=== PATIENT | female | born 2000 | race Caucasian/White ===

== ENCOUNTER 2018-02-10 20:37 | Emergency (ER) | payer OTHER, SELFPAY ==
[2018-02-10 20:42] VITALS: BP 136/87; PULSE 72; RESP 18; TEMP 36.9; O2SAT 100
--- NOTE | 2018-02-10 22:02 | PC.NURSE ---
In bilateral ears pts earring backs are within earlobe. Pt unable to remove them herself. Pt unsure of how long they have been imbedded in her earlobe.
--- NOTE | 2018-02-10 22:12 | ED.GENADULT ---
HPI - General Adult General Chief complaint: Skin/Abscess/Foreign Body Stated complaint: EARINGS GOT STUCK STARING TO GET INFECTED Time Seen by Provider: 02/10/18 21:36 Source: patient Mode of arrival: ambulatory Limitations: no limitations History of Present Illness HPI narrative: Year old otherwise healthy female here for evaluation of both of her here rings being stuck in her ears and concerns for an infection. She states she has had these earrings in her ears for an extended period of time. She states that the skin has grown over the back of the earring and she could no longer get them out. Related Data Allergies Allergy/AdvReac Type Severity Reaction Status Date / Time No Known Drug Allergies Allergy Verified 02/10/18 20:41 Review of Systems Constitutional Denies fatigue and Denies headache(s) ENT Ears, Nose, Mouth, and Throat: Denies headache(s) Comments: Earring stuck in both of her ears Integumentary/Breasts Comments: Swelling and redness of bilateral ear lobes Neurologic Denies headache(s) Endocrine Denies fatigue PFSH Medical History Healthy adult (Acute) Surgical History No pertinent past surgical history (Acute) Social History Smoking Status: Never smoker Exam Initial Vital Signs Initial Vital Signs: Vital Signs Temperature 98.4 F 02/10/18 20:42 Pulse Rate 72 02/10/18 20:42 Respiratory Rate 18 02/10/18 20:42 Blood Pressure 136/87 02/10/18 20:42 Pulse Oximetry 100 02/10/18 20:42 Const General: cooperative, healthy appearing, comfortable, well developed, well groomed and No acute distress Orientation: alert, awake and oriented x3 HENMT Ears: other (Patient with pierced ears bilateral ear lobes. Skin has grown over the backing of both of the earrings.) Resp Effort & Inspection: normal respiratory effort Skin Other: Patient with swelling of bilateral ear lobes with only minimal redness. Left appears to be worse than right. Neuro General: alert, awake and oriented x3 Extrem General: normal to inspection and capillary refill normal Psych Appearance: grossly normal and well kempt Course Vital Signs - 8 hr 02/10/18 20:42 02/10/18 22:18 Temperature 98.4 F Pulse Rate 72 84 Respiratory Rate 18 16 Blood Pressure 136/87 Blood Pressure [Left Arm] 128/87 Pulse Oximetry 100 100 Medical Decision Making MDM Narrative Medical decision making narrative: With the help of a hemostat was able to remove the backing is a both the earrings in were able to remove the earrings. Removal the earrings did cause some bleeding. There is only minimal redness around the areas. No purulent drainage. Informed the patient that if she had another pair of earrings that putting a new pair in and not making them tight would help with any drainage of possible infection. She expressed understanding. Will hold on antibiotics secondary to the look of the ears tonight. I suspect that the redness is because the earrings had been in for such an extended period time. She was given return precautions. Both her and her mother expressed understanding and agreement with plan Discharge Plan Departure Patient Disposition: Home Clinical Impression: Embedded earring Discharge Date/Time: 02/10/18 22:19 Interventions: ED Discharge Assessment Last Done: 02/10/18 22:19 Activity Restrictions/Additional Instructions: Keep the ear lobes clean. You can shower like normal. Return to the emergency department for any new or worsening symptoms
[2018-02-10 22:18] VITALS: BP 128/87; PULSE 84; RESP 16; O2SAT 100
== END 2018-02-10 22:19 | disposition home or self-care (01) ==
PROVIDERS: Emergency Provider Emergency Medicine
DX: S00.451A Superficial foreign body of right ear, initial encounter (principal); S00.452A Superficial foreign body of left ear, initial encounter
CPT/HCPCS: 99282

== ENCOUNTER → 2018-02-28 14:00 | Outpatient (CLI) | payer OTHER, SELFPAY | DX: Z23 Encounter for immunization (principal) | CPT/HCPCS: 90471; 90686 ==

== ENCOUNTER → 2019-06-15 17:06 | Outpatient (CLI) | payer SELFPAY | PROVIDERS: Visit Provider Physician Assistant | DX: N30.01 Acute cystitis with hematuria (principal) | CPT/HCPCS: 87077; 87086; 87186 ==

== ENCOUNTER → 2021-01-31 09:40 | Outpatient (CLI) | payer OTHER, SELFPAY ==
[2021-01-31 12:09] LABS: Urine N gonorrhoeae NOT DETECTED
[2021-01-31 13:27] LABS: Urine Chlamydia NOT DETECTED
== END ==
PROVIDERS: Visit Provider Physician Assistant
DX: R30.0 Dysuria (principal); R35.0 Frequency of micturition
CPT/HCPCS: 87077; 87086; 87186; 87210; 87491; 87591

== ENCOUNTER → 2021-12-24 15:01 | Outpatient (CLI) | payer OTHER, MEDICAID, SELFPAY ==
--- NOTE | 2021-12-24 15:02 | DI.US.S_ITS ---
PROCEDURE: US OB >= 14 WEEKS FETUS INDICATIONS: LATE ANATOMY EVALUATION OUTSIDE/PRIOR DATING DATA: Last menstrual period (LMP): 05/13/2021 LMP-based estimated date of delivery (MONSERRAT): 02/17/2022. First dating scan (date and location): 12/24/2021. Estimated date of delivery (MONSERRAT) from first dating scan: 02/22/2022. The calculations are made using the ultrasound MONSERRAT of 02/22/2022. TECHNIQUE: Real-time scanning was performed of the fetus, with image documentation and biometric measurements. COMPARISON: None. FINDINGS: General: A single living intrauterine gestation is present. Presentation: Vertex. Placenta: Placental position is anterior , without previa. Amniotic fluid index: 9.8 cm cm, normal range is 5-24 cm. Single deepest vertical pocket is 4.1 cm. heart rate: 147 beats per minute. Maternal cervical canal: 3.8 cm long. Normal lower limit is 2.5 cm. biometrics: Biparietal diameter: 31 weeks 4 days Head circumference: 31 weeks 5 days Abdominal circumference: 30 weeks 5 days Femur length: 31 weeks 4 days Clinically estimated gestational age: 32 weeks 1 day Composite gestational age from present scan: 31 weeks 3 days Estimated weight and percentile: 17 17 g; 15 percentile Anatomic survey: Neuro: Ventricles are non-dilated at less than 10 mm. Cisterna magna is normal at 3-11 mm. Cerebellum is normal in size and morphology. Nuchal skin fold: Suboptimally visualized. Face: Suboptimally visualized. Spine: Suboptimally visualized. Heart: 4-chambered heart is present, with normal ventricular outflow tracts. Diaphragm: Diaphragm is intact. Stomach: Left-sided stomach is present. Kidneys: No hydronephrosis. Normal is less than 5 mm in 2nd trimester, less than 7 mm in 3rd trimester. Cord: 3-vessel cord has orthotopic insertion. Bladder: Normal in size. Extremities: All 4 extremities identified. IMPRESSION: 1. Single living IUP redemonstrated and interval growth is lower limits of normal with estimated weight 15 percentile. 2. face and spine suboptimally visualized; otherwise normal anatomy. Follow-up recommended. We strive to produce accurate, complete, and clear reports of imaging services. To assist us in improving patient care, this report was composed using standard report templates and voice recognition software. Therefore, it may contain abnormal punctuation, insertions and/or omissions. Occasional wrong-word or sound-alike substitutions may occur. Though we review the report and make efforts to correct it, we do recommend that the report be read carefully in proper context to recognize any text inaccuracies. Dictated by: Loyd SHELTON Interpreted: Tahmina Vickers MD on 12/24/2021 at 16:01 Transcribed by: YENY on 12/28/2021 at 15:32 Approved by: Tahmina Vickers M.D. on 12/28/2021 at 17:35
== END ==
PROVIDERS: Referring Provider Obstetrics & Gynecology; Visit Provider Obstetrics & Gynecology
DX: Z34.03 Encounter for supervision of normal first pregnancy, third trimester (principal); Z3A.31 31 weeks gestation of pregnancy
CPT/HCPCS: 76811

== ENCOUNTER → 2021-12-29 10:04 | Outpatient (CLI) | payer OTHER, MEDICAID, SELFPAY ==
[2021-12-29 14:15] LABS: GTT (PREG) 1 Hour PP 50gm Dose 112 mg/dL (76-139)
== END ==
PROVIDERS: Referring Provider Obstetrics & Gynecology; Visit Provider Obstetrics & Gynecology
DX: Z34.03 Encounter for supervision of normal first pregnancy, third trimester (principal)
CPT/HCPCS: 36415; 82950

== ENCOUNTER → 2022-01-13 14:51 | Outpatient (CLI) | payer OTHER, MEDICAID, SELFPAY | PROVIDERS: Visit Provider Obstetrics & Gynecology | DX: Z34.03 Encounter for supervision of normal first pregnancy, third trimester (principal) | CPT/HCPCS: 87086 ==

== ENCOUNTER → 2022-01-20 11:01 | Outpatient (CLI) | payer OTHER, MEDICAID, SELFPAY ==
[2022-01-21 12:05] LABS: Strep Grp B PCR NEG for Grp B Strep
== END ==
PROVIDERS: Visit Provider Obstetrics & Gynecology
DX: Z36.85 Encounter for antenatal screening for Streptococcus B (principal); Z3A.36 36 weeks gestation of pregnancy
CPT/HCPCS: 87653

== ENCOUNTER → 2022-01-21 11:13 | Outpatient (CLI) | payer OTHER, MEDICAID, SELFPAY ==
--- NOTE | 2022-01-21 11:14 | DI.US.S_ITS ---
PROCEDURE: US OB LIMITED INDICATIONS: growth. MONSERRAT is 02/17 set by 7 week US OUTSIDE/PRIOR DATING DATA: Last menstrual period (LMP): 05/13/2021. LMP-based estimated date of delivery (MONSERRAT): 02/17/2022. First dating scan (date and location): 12/24/2021. Estimated date of delivery (MONSERRAT) from first dating scan: 02/22/2022. TECHNIQUE: Real-time scanning was performed of the fetus, with image documentation and biometric measurements. Endovaginal scanning: None COMPARISON: None. FINDINGS: General: A single living intrauterine gestation is present. Presentation: Cephalic. Placenta: Placental position is anterior , without previa. Amniotic fluid index: 10.7 cm, normal range is 5-24 cm. Single deepest vertical pocket is 3.5 cm. heart rate: 158 beats per minute. Maternal cervical canal: Not visualized biometrics: Biparietal diameter: 8.3 cm, 33 week 3 day Head circumference: 30.6 cm, 34 week 0 day Abdominal circumference: 30.6 cm, 34 week 4 day Femur length: 6.8 cm, 35 week 0 day Clinically estimated gestational age: 36 week 1 day Composite gestational age from present scan: 34 week 2 day Estimated weight and percentile: 2448 g, 14th percentile Umbilical artery S/D ratio: 2.5, 2.3, 2.3 Other: Not applicable. IMPRESSION: Single live intrauterine corresponding with a 34 week 2 day gestation by current ultrasound Approved by: Jack Damon M.D. on 01/21/2022 at 13:28
== END ==
PROVIDERS: Referring Provider Obstetrics & Gynecology; Visit Provider Obstetrics & Gynecology
DX: O36.5990 Maternal care for other known or suspected poor fetal growth, unspecified trimester, not applicable or unspecified (principal); Z3A.34 34 weeks gestation of pregnancy
CPT/HCPCS: 76815; 76820

== ENCOUNTER 2022-02-01 02:04 | Inpatient (IN) | payer OTHER, MEDICAID, SELFPAY ==
[2022-02-01 03:56] LABS: Add Manual Diff / Slide Review NO; Basophils Absolute Auto 200 /uL (0-100); Basophils Percent Auto 1.3 % (0-2); Eosinophils Absolute Auto 100 /uL (0-450); Hematocrit 35.1 % (36-46); Lymphocytes Absolute Auto 2300 /uL (1100-4500); Lymphocytes Percent Auto 18.4 % (25-40); Mean Corpuscular HGB Conc 34.3 % (30-36); Mean Corpuscular Hemoglobin 31.2 PG (26-34); Monocytes Absolute Auto 900 /uL (0-900); Monocytes Percent Auto 7.2 % (3-14); Neutrophils Absolute Auto 9100 /uL (1500-7000); Neutrophils Percent Auto 72.1 % (50-75); Platelet Count 259 X10^3/uL (150-400); Red Blood Cell Count 3.85 X10^6/uL (4.0-5.2); Red Cell Distribution Width 13.9 % (11.6-14.8); White Blood Cell Count 12.7 X10^3/uL (4.5-11.0)
[2022-02-01 04:02] LABS: COVID19 -Nasal RAPID Negative (Negative)
[2022-02-01] MEDS: LACTATED RINGERS 1,000 ML 100 ML IV ×2 (07:33→11:27)
--- NOTE | 2022-02-01 07:58 | P.HPOB_ITS ---
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 She reports a gush of fluid at approximately 12:30 a.m. this morning. Presentation here she was elio approximately every 5 minutes. She continues with contractions approximately every 5 minutes, only feeling as crampy, not feeling anything pain for strong. No vaginal bleeding. Feeling good movement. has been uncomplicated. She received her care in [place] until transfer here at 32 weeks. Care in [place]: MONSERRAT is set by a 7 week US in [place]. She had a normal anatomy ultrasound. Screening random glucose in 3rd trimester was normal. Glucola here was normal. Ultrasound here at 32 weeks EFW 15%. percentile. Pt here working, still in [place]. Patient's mother with her today as support person during labor. History of Present care: good care Dating criteria: based on 1st trimester US only Ultrasounds: normal 1st trimester US and normal mid trimester US Abnormal ultrasound findings: 32 week ultrasound at [facility] showed EFW 15 percentile, placenta anterior, no previa Obstetrical complications: none Medical complications: none Preadmission Labs Blood type: O (+) positive -: Antibody screen: negative, GBS status: negative (01/20/22), HIV: unknown and RPR/VDLR: negative (November 14 2021 [place]) -: Chlamydia screen: not detected (01/11/21) and Gonorrhea screen: not detected (01/11/21) 1 hr GTT: 112 Evaluation Evaluation Baseline heart rate: 135 Variability: Moderate (11-25) monitor accelerations: Present Monitor Decelerations: Absent Contraction Frequency (minutes): 5 Uterine Contraction Intensity: Mild Category of Tracing: Reactive Status: Category l Dilation (cm): 0 Effacement (%): 0 Non-invasive Membranes Rupture Test: positive (by RN on admission) Comments: bedside US: vertex Cervical exam not re-checked. Cervix: ftp/long at 0230 [facility] Medical History Healthy adult Surgical History No pertinent past surgical history Social History marital status: number of children: 0 household members: spouse and family (parents) lives independently: Yes housing: house pets and animals: No education level: high school occupational status: unemployed current occupational exposures/hazards: No special guerita needs: No travel history: recent (7 months in [place]) seatbelt use: always water heater temp set < 120 deg: No (will have family adjust) working smoke detector in home: Yes fire extinguisher in home: Yes carbon monox detector in home: Yes firearms in home: Yes do you feel safe at home: Yes Smoking Status: Never smoker second hand exposure: No alcohol intake: former (social drinker when not ) substance use type: does not use during the past year weight has: remained stable well-balanced diet: daily or most days daily servings fruits/ve-4 caffeine: No Type(s) of exercise: walking frequency: 1-2 times per week duration: 15-30 minutes/day Meds Home Medications and Allergies Home Medications Medication Instructions Recorded Confirmed Type prenat.vits,lindsay,nol-urbm-hcjrx 1 tab PO DAILY 12/23/21 02/01/22 History Allergies Allergy/AdvReac Type Severity Reaction Status Date / Time No Known Drug Allergies Allergy Verified 02/01/22 05:03 OB Exam HENIA Head: normal to inspection, normocephalic and atraumatic Resp Effort & Inspection: normal respiratory effort and able to speak in complete sentences Cardio Rate: regular rate Extremities Lower extremity: Yes normal to inspection Objective Labs Result Diagrams: 02/01/22 03:15 Labs: Laboratory Results - last 24 hr 02/01/22 02/01/22 02/01/22 03:15 03:15 03:15 WBC 12.7 H RBC 3.85 L Hgb 12.0 Hct 35.1 L MCV 91.0 MCH 31.2 MCHC 34.3 RDW 13.9 Plt Count 259 Neut % (Auto) 72.1 Lymph % (Auto) 18.4 L [place] % (Auto) 7.2 Eos % (Auto) 1.0 L Baso % (Auto) 1.3 Neut # (Auto) 9100 H Lymph # (Auto) 2300 [place] # (Auto) 900 Eos # (Auto) 100 Baso # (Auto) 200 H SARS-CoV-2 (PCR) Negative Blood Type O Positive Antibody Screen Negative Afebrile BP normal Assessment and Plan Assessment and Plan Assessment and Plan narrative: 21-year-old G1 at 37wk5d with SROM, GBS negative. No labor yet approximately 8 hours after spontaneous rupture membranes. EFM category 1, vertex by ultrasound. Plan: I recommended adding Pitocin for augmentation labor, discussed. Patient agrees, desires augmenting labor at this time. Pitocin ordered. Time Spent with Patient Total time spent with greater than 50% in coordination of care (as documented) at patient's floor/unit and/or counseling patient:: less than 15 minutes
[2022-02-01] MEDS: OXYTOCIN PREMIX 30 UNIT/500 ML PLAST..BAG IV (08:10)
[2022-02-01] MEDS: fentaNYL 100 MCG/2 ML INJ 50 MCG IV (11:08)
--- NOTE | 2022-02-01 13:14 | PM.OBPNLAB ---
Date/Time Date Patient Seen: 02/01/22 Time Patient Seen: 13:00 Pain Control Pain control: tolerating well and narcotic analgesia Pelvic Exam Dilation (cm): 4.5 Effacement (%): 0 station: -1 Amniotic membrane status: Ruptured Contractions Contractions on admission: regular Pitocin rate (mU/min): 4 Contraction frequency (min): 2 Contraction pattern: Regular Contraction intensity: Moderate Status status: Category l Heart Rate Baseline: 150 Monitor Accelerations: Present Monitor Decelerations: Recurrent and Variable Monitor Variability: Moderate Assessment and Plan Assessment: active labor Comments: With position change, variable decelerations corrected to not recurrent, not with every contraction and decreased from moderate to mild. Of note to severe variable decelerations were when patient was bearing down in the bathroom, otherwise having [id number] variable decelerations, category 2 EFM. She appears to be progressing now in labor, 4-5 cm/ 90% effaced. Will continue Pitocin at current dose, with close observation of EFM and labor progress. With correction variable decelerations mild, initially stayed all ordered since fentanyl did not give her enough relief. However return of moderate variable decelerations, I discussed with the patient it would be better not to give stayed all, not to take away the FHR variability so we can follow that. Discussed nitrous with her or epidural. She declines both for now and will continue with attempted natural labor.
--- NOTE | 2022-02-01 14:54 | PM.OBPNLAB ---
Date/Time Date Patient Seen: 02/01/22 Time Patient Seen: 14:45 Pain Control Pain control: tolerating well Comments: Coping with contractions. Feeling rectal pressure and bearing down mildly. Encouraged her not to push yet Pelvic Exam Dilation (cm): 9 Effacement (%): 100 station: +1 Amniotic membrane status: Ruptured Contractions Contractions on admission: regular Pitocin rate (mU/min): 1 Contraction frequency (min): 2 Contraction pattern: Regular (q 2-3 minutes) Contraction intensity: Strong/Firm Status status: Category ll Heart Rate Baseline: 160 Monitor Accelerations: Present Monitor Decelerations: Episodic and Variable Monitor Variability: Moderate Assessment and Plan Assessment: active labor and other ( Pitocin augmentation ongoing. Pitocin decreased from 4 to 1 milliunits per minute, with category 2 EFM.) Comments: Variable decelerations less severe with decreased Pitocin and position change. She is having a frequently with 2/3 of contractions. She is 9.5 cm now and feeling rectal pressure, bearing down. Will recheck her in 10 15 minutes, And anticipate pushing soon.
[2022-02-01 15:19] LABS: Hepatitis B Surface Antigen NEGATIVE s/c (NEGATIVE); Rubella Antibody IgG 19.3 IU/mL (>15)
[2022-02-01 15:26] LABS: HIV 1 & 2 Ab/Ag 4th Gen Combo NEGATIVE (NEGATIVE)
[2022-02-01 15:36] LABS: Hep C Virus Ab w/Reflex Quant NEGATIVE s/c (NEGATIVE)
--- NOTE | 2022-02-01 17:34 | PM.OBPRVD ---
Labor & Delivery Delivery date: 02/01/22 Cervical ripening method: none Induction method: none Delivery augmentation: pitocin Delivery monitor: external FHT and external uterine Route of delivery: Episiotomy description: None L&D Laceration Description: Periurethral - 2nd Degree and Perineal - 2nd Degree Delivery repair: chromic Estimated blood loss (mL): 150 Anesthesia Type: Local Complications: none Narrative: over an intact perineum, without complications. Second-degree left periurethral and perineal lacerations were repaired. Placenta delivered spontaneously, intact/ 3VC. Description of procedure: EFM was category 2 tracing with the active phase, with mild to moderate variable deceleration, occasional severe variable deceleration. Severity of deceleration would improve with position change, and would not be with every contraction as well after position change. Pitocin was all to decreased from 4 milliunits to 1 brandon unit. She progressed overall quickly in the active phase of labor. She progressed to completely dilated. ?She began pushing. With pushing she had onset of some severe variable decelerations. She was instructed to push every other contraction. With position change to her right side, variable decelerations return to mild to moderate. FHR variability between the contractions was moderate. EFM category 2. She was progressing with pushing. She pushed approximately 1hour and had a spontaneous vaginal delivery over an intact perineum from the CEDRIC position. ?A nuchal cord was present, which was palpable to extend down the body. The cord was not tight and the baby was able to deliver through the cord with the patient pushing. ?Anterior followed by posterior shoulder were delivered without difficulty with the patient pushing, followed by the remainder of the body. ? A baby girl was delivered. The baby had good tone, and was placed on maternal abdomen. With drying the baby the baby began crying spontaneously, and became vigorous. ?After 90 seconds, cord was clamped and cut. The baby continued to be vigorous and did well. Placenta delivered spontaneously approximately 5 minutes later. She had light bleeding after delivery of the placenta. ?She was given routine Pitocin IV. On inspection she had a 2nd degree left periurethral tear and second-degree perineal tear. 1% lidocaine was placed as local anesthesia to both areas. Attention 1st placed to periurethral tear since this area was having persistent heavier bleeding. The periurethral tear extended inferiorly and medially to just lateral of her urethra. Two deeper sutures of 3-0 chromic were placed. The remainder of the tear was then reapproximated with 4 0 chromic. The perineal laceration was repaired in usual fashion with 3-0 chromic. She did well and was left to recover in good condition. Weight of the baby was [id number] [place] Baby 1: gender: Female Presentation: vertex Position: Right Occiput Anterior Placenta delivery description: Spontaneous Cord Vessel Description: 3 Vessels, Nuchal Cord and Around Body x1 score (1 min): 9 score (5 min): 9 weight: 5 lb 10 oz Plan for aftercare: Routine care
[2022-02-01] MEDS: IBUPROFEN 600 MG TABLET PO (18:44)
[2022-02-01] MEDS: ACETAMINOPHEN 325 MG TABLET 650 MG PO (18:44)
[2022-02-01] MEDS: DERMOPLAST SPRAY 20% 60 ML 1 SPRAY TOP (18:45)
[2022-02-02] MEDS: IBUPROFEN 600 MG TABLET PO ×2 (00:49→07:24)
[2022-02-02 06:58] LABS: RPR Screen Non Reactive (Non Reactive)
[2022-02-02] MEDS: DOCUSATE 100 MG CAPSULE PO (09:14)
[2022-02-02 11:36] LABS: Varicella IgG Antibody 1007 index (Immune >165)
--- NOTE | 2022-02-02 14:48 | P.DS_ITS ---
History of Present Illness History of Present Illness Date Patient Seen: 02/02/22 Time Patient Seen: 13:00 Chief complaint: L&D Narrative: 21 year old G1 female with EGA 37wk5d presented with spontaneous rupture membranes.? She began elio approximately every 5 minutes, but contractions were mild and not uncomfortable. has been uncomplicated.? She received her care in [place] until transfer here at 32 weeks. Care in [place]: MONSERRAT is set by a 7 week US in [place].? Ultrasound here at 32 weeks EFW 15%.??Pt here working, still in [place].? Patient's mother with her today as support person during labor. Patient had no spontaneous labor after about 8 hours of rupture membranes and Pitocin was added for augmentation. Her GBS screen was negative. She progressed into labor and had a spontaneous vaginal delivery. She had r epair of a second-degree perineal laceration and left periurethral tear. She has Had a normal course. Her blood pressures remain normal. She remains afebrile. She denies any problems today on day 1. She denies any problems. Her perineal discomfort is controlled with ibuprofen. Her lochia is normal. She is . The baby is doing well. She desires discharge home today on day 1. Discharge Providers Provider Date of admission: 02/01/22 02:04 Discharge Date: 02/02/22 Primary care physician: Virginia Best MD Consults: 02/02/22 18:11 Consult to Hand Lacer Routine Comment: Discharge provider: Virginia Best MD Summary Hospital Course Discharge Diagnosis: 37 week delivered Spontaneous rupture membranes, labor Status post spontaneous vaginal delivery Hospital Course: Exam confirmed ruptured membranes. Pitocin augmentation was added. She progressed to completely dilated and had a spontaneous vaginal delivery. She had repair of a second-degree perineal laceration and a deep second-degree left periurethral laceration. She has had a normal course overnight and desires discharge to home. Her lochia is normal. She is not noting any significant perineal discomfort but she has been getting ibuprofen and Tylenol. No uterine cramping. The baby has done well. She has having some difficulty with the baby latching and is supplementing at this time. She will be discharged with a follow-up appointment with Dr. Mcdonald for pediatric care tomorrow. Baby was discharged by Dr. Reece. She is also scheduled for a follow-up appointment with the [employer] distribution consultant. Status at Discharge Cognitive/behavioral status at discharge: oriented Time Spent with Patient Time spent: Less than 30 minutes Exam Vital Signs (past 8 hours): Afebrile. BP normal Narrative Exam Narrative: General: ?Well-appearing female Abdomen: ?Soft, nontender, nondistended. ?Fundus @ umblicus firm, nontender Extremities: ?Trace pedal edema Objective Labs Result Diagrams: 02/01/22 03:15 Labs: Laboratory Results - last 24 hr 02/01/22 02/01/22 02/01/22 03:15 03:15 03:15 Serum VDRL Hep Bs Antigen Negative Hepatitis C Antibody Negative HIV 1&2 Ab/P24 Ag 4thGn Negative Rubella Antibody 19.3 VZV IgG Antibody 02/01/22 02/01/22 03:15 03:15 Serum VDRL Non reactive Hep Bs Antigen Hepatitis C Antibody HIV 1&2 Ab/P24 Ag 4thGn Rubella Antibody VZV IgG Antibody 1007 [facility] Medical History Healthy adult Surgical History No pertinent past surgical history Social History marital status: number of children: 0 household members: spouse and family (parents) lives independently: Yes housing: house pets and animals: No education level: high school occupational status: unemployed current occupational exposures/hazards: No special guerita needs: No travel history: recent (7 months in [place]) seatbelt use: always water heater temp set < 120 deg: No (will have family adjust) working smoke detector in home: Yes fire extinguisher in home: Yes carbon monox detector in home: Yes firearms in home: Yes do you feel safe at home: Yes Smoking Status: Never smoker second hand exposure: No alcohol intake: former (social drinker when not ) substance use type: does not use during the past year weight has: remained stable well-balanced diet: daily or most days daily servings fruits/ve-4 caffeine: No Type(s) of exercise: walking frequency: 1-2 times per week duration: 15-30 minutes/day Discharge Assessment & Plan Assessment and Plan Assessment: PPD 1 doing well 37 week delivered Spontaneous rupture membranes, labor Status post spontaneous vaginal delivery Plan of Treatment: Discharge home. Follow-up appointment with me in 6 weeks for visit. Signs and symptoms of depression reviewed as well as general precautions. She has a follow-up appointment scheduled with the oracle distribution consultant. Also has a routine appointment for follow-up with the baby scheduled with Dr. Reece tomorrow. Discharge Plan Discharge Plan Patient Disposition: Home Provider Discharge Comment: 37 week , delivered Status post spontaneous vaginal delivery Discharge orders & Medications Prescriptions: New acetaminophen 325 mg Tablet 650 mg PO Q4H PRN (Reason: Fever/Mild Pain (1-3)) Qty: 1 0RF ibuprofen 600 mg Tablet 600 mg PO Q6HR PRN (Reason: Fever/Mild Pain (1-3)) Qty: 1 0RF Purelan Cream 1 applic topical PRN PRN (Reason: Tenderness) Qty: 7 0RF Continued prenat.vits,lindsay,[id number] Tablet 1 tab PO DAILY Follow up/Referrals: Virginia Best MD [Primary Care Provider] - 03/15/22 11:00 am Discharge Health Status Multidrug resistant organism: No MDRO Diet/Activity/Treatments Diet: Regular Other treatments: appointment with [facility]: February 09, 2022 at 11:00 am. Check in same place as Dr. Dela Cruz. Visit Report/Discharge Packet Instructions: DI for Labor and Delivery, Vaginal Stand Alone Forms: Discharge: Care Discharge Data Primary Care Provider: Virginia Best
== END 2022-02-02 16:15 | disposition home or self-care (01) | DRG 560 ==
PROVIDERS: Admitting Provider Obstetrics & Gynecology; PCP Obstetrics & Gynecology; Referring Provider Obstetrics & Gynecology; Visit Provider Obstetrics & Gynecology
DX: O42.02 Full-term premature rupture of membranes, onset of labor within 24 hours of rupture (principal); O76 Abnormality in fetal heart rate and rhythm complicating labor and delivery; O70.1 Second degree perineal laceration during delivery; O71.82 Other specified trauma to perineum and vulva; Z3A.37 37 weeks gestation of pregnancy; Z37.0 Single live birth; Z20.822 Contact with and (suspected) exposure to COVID-19
CPT/HCPCS: 36415; 59050; 59409; 76815; 80055; 84112; 86787; 86803; 86850; 86900; 86901; 87389; 87635; C9803; G0379; J2590; J3010

== ENCOUNTER → 2022-10-18 12:51 | Outpatient (CLI) | payer OTHER, MEDICAID, SELFPAY ==
--- NOTE | 2022-10-18 12:53 | DI.US.S_ITS ---
PROCEDURE: US OB LIMITED INDICATIONS: DATING OUTSIDE/PRIOR DATING DATA: Last menstrual period (LMP): July 02, 2022. LMP-based estimated date of delivery (MONSERRAT): April 08, 2023. First dating scan (date and location): October 18, 2022. Estimated date of delivery (MONSERRAT) from first dating scan: April 07, 2023. TECHNIQUE: Real-time scanning was performed of the fetus, with image documentation. Endovaginal scanning: Not performed COMPARISON: None. FINDINGS: A single living intrauterine gestation is present. Presentation: Transverse with head to maternal left. Placenta: Placental position is posterior, without previa. Amniotic fluid index: Appears visibly adequate for early gestation. heart rate: 149 beats per minute. Maternal cervical canal: 4.6 cm long. Normal lower limit is 2.5 cm. biometry: Biparietal diameter: 3.2 cm, 16 weeks and 0 days. Head circumference: 11.5 cm, 15 weeks and 4 days. Abdominal circumference: 9.5 cm, 15 weeks and 5 days. Femur length: 1.7 cm, 15 weeks and 0 days Estimated gestational age from initial scan: 15 weeks and 3 days. Estimated gestational age by today's ultrasound: 15 weeks and 4 days IMPRESSION: 1. Single living intrauterine gestation with estimated sonographic gestational age of approximately 15 weeks and 4 days. Normal interval growth has occurred. Estimated dated delivery by clinical dating and sonographic evaluation are concordant. 2. Recommend routine second trimester anatomy screening survey. Dictated by: Cj Rick M.D. on 10/18/2022 at 16:45 Approved by: Cj Rick M.D. on 10/18/2022 at 16:50
== END ==
PROVIDERS: Referring Provider Obstetrics & Gynecology; Visit Provider Obstetrics & Gynecology
DX: Z34.82 Encounter for supervision of other normal pregnancy, second trimester (principal); Z3A.15 15 weeks gestation of pregnancy
CPT/HCPCS: 76815

== ENCOUNTER → 2022-10-27 13:26 | Outpatient (CLI) | payer OTHER, MEDICAID, SELFPAY | PROVIDERS: Visit Provider Obstetrics & Gynecology | DX: Z34.80 Encounter for supervision of other normal pregnancy, unspecified trimester (principal) | CPT/HCPCS: 87077; 87086; 87186 ==

== ENCOUNTER → 2022-11-23 12:16 | Outpatient (CLI) | payer OTHER, MEDICAID, SELFPAY ==
--- NOTE | 2022-11-23 12:17 | DI.US.S_ITS ---
PROCEDURE: US OB >= 14 WEEKS FETUS INDICATIONS: 20 week anatomy OUTSIDE/PRIOR DATING DATA: Last menstrual period (LMP): 07/02/2022. LMP-based estimated date of delivery (MONSERRAT): 04/08/2023. First dating scan (date and location): 10/18/2022. Estimated date of delivery (MONSERRAT) from first dating scan: 04/07/2023. TECHNIQUE: Real-time scanning was performed of the fetus, with image documentation and biometric measurements. Endovaginal scanning: Not performed COMPARISON: [facility], OB LIMITED, 10/18/2022, 13:06. FINDINGS: General: A single living intrauterine gestation is present. Presentation: Vertex. Placenta: Placental position is posterior , without previa. Amniotic fluid index: 10.9 cm, normal range is 5-24 cm. Single deepest vertical pocket is 3.6 cm. heart rate: 158 beats per minute. Maternal cervical canal: 5.0 cm long. Normal lower limit is 2.5 cm. biometrics: Biparietal diameter: 4.7 cm 20 weeks 1 day Head circumference: 17.9 cm 20 weeks 1 day Abdominal circumference: 14.9 cm 20 weeks 1 day Femur length: 3.3 cm 20 weeks 3 days estimated gestational age: 20 weeks 4 days Composite gestational age from present scan: 20 weeks 2 days Estimated weight and percentile: 342 g, 29th percentile Anatomic survey: Neuro: Ventricles are non-dilated at less than 10 mm. Cisterna magna is normal at 3-11 mm. Cerebellum is normal in size and morphology. Nuchal skin fold: Normal at less than 6 mm between 14-21 weeks gestational age. Face: Nose and lips, facial profile are normal. Spine: No evidence for spina bifida. Heart: 4-chambered heart is present. Unremarkable left ventricular outflow tract. Right ventricular outflow tract not well seen. Diaphragm: Diaphragm is intact. Stomach: Left-sided stomach is present. Kidneys: No hydronephrosis. Normal is less than 5 mm in 2nd trimester, less than 7 mm in 3rd trimester. Cord: 3-vessel cord has orthotopic insertion. Bladder: Normal in size. Extremities: All 4 extremities identified. IMPRESSION: 1. Single living intrauterine . 2. Right ventricular outflow tract is not well visualized. Attention on follow-up is recommended. 3. Otherwise unremarkable 2nd trimester anatomy survey. We strive to produce accurate, complete, and clear reports of imaging services. To assist us in improving patient care, this report was composed using standard report templates and voice recognition software. Therefore, it may contain abnormal punctuation, insertions and/or omissions. Occasional wrong-word or sound-alike substitutions may occur. Though we review the report and make efforts to correct it, we do recommend that the report be read carefully in proper context to recognize any text inaccuracies. Dictated by: David Carney M.D. on 11/24/2022 at 8:52 Approved by: David Carney M.D. on 11/24/2022 at 8:57
== END ==
PROVIDERS: Referring Provider Obstetrics & Gynecology; Visit Provider Obstetrics & Gynecology
DX: Z34.82 Encounter for supervision of other normal pregnancy, second trimester (principal); Z3A.20 20 weeks gestation of pregnancy
CPT/HCPCS: 76811

== ENCOUNTER → 2023-03-11 11:54 | Outpatient (CLI) | payer OTHER, MEDICAID, SELFPAY ==
[2023-03-11 13:44] LABS: Add Manual Diff / Slide Review NO; Basophils Absolute Auto 100 /uL (0-100); Basophils Percent Auto 0.5 % (0-2); Eosinophils Absolute Auto 100 /uL (0-450); Eosinophils Percent Auto 0.7 % (2-4); Hematocrit 33.3 % (36-46); Hemoglobin 11.2 g/dL (12.0-16.0); Lymphocytes Absolute Auto 1900 /uL (1100-4500); Lymphocytes Percent Auto 15.1 % (25-40); Mean Corpuscular HGB Conc 33.6 % (30-36); Mean Corpuscular Hemoglobin 29.1 PG (26-34); Mean Corpuscular Volume 86.6 fL (80-100); Monocytes Absolute Auto 700 /uL (0-900); Monocytes Percent Auto 5.4 % (3-14); Neutrophils Absolute Auto 9900 /uL (1500-7000); Neutrophils Percent Auto 78.3 % (50-75); Platelet Count 264 X10^3/uL (150-400); Red Blood Cell Count 3.84 X10^6/uL (4.0-5.2); White Blood Cell Count 12.7 X10^3/uL (4.5-11.0)
[2023-03-11 13:46] LABS: Hemoglobin 11.2 g/dL (12.0-16.0)
[2023-03-11 14:04] LABS: GTT (PREG) 1 Hour PP 50gm Dose 157 mg/dL (76-139)
[2023-03-12 15:10] LABS: RPR Screen Non Reactive (Non Reactive); Varicella IgG Antibody 2683 index (Immune >165)
[2023-03-14 19:55] LABS: HIV 1 & 2 Ab/Ag 4th Gen Combo NEGATIVE (NEGATIVE); Hep C Virus Ab w/Reflex Quant NEGATIVE s/c (NEGATIVE); Hepatitis B Surface Antigen NEGATIVE s/c (NEGATIVE); Rubella Antibody IgG 28.1 IU/mL (>15)
== END ==
PROVIDERS: Obstetrics & Gynecology; Specialist; Referring Provider Obstetrics & Gynecology; Visit Provider Obstetrics & Gynecology
DX: Z34.82 Encounter for supervision of other normal pregnancy, second trimester (principal); Z3A.26 26 weeks gestation of pregnancy; Z34.80 Encounter for supervision of other normal pregnancy, unspecified trimester
CPT/HCPCS: 36415; 80055; 82950; 85014; 85018; 86787; 86803; 86850; 86900; 86901; 87389

== ENCOUNTER → 2023-03-15 10:40 | Outpatient (CLI) | payer OTHER, MEDICAID, SELFPAY ==
[2023-03-16 13:43] LABS: Strep Grp B PCR NEG for Grp B Strep
== END ==
PROVIDERS: Visit Provider Obstetrics & Gynecology
DX: Z34.03 Encounter for supervision of normal first pregnancy, third trimester (principal); Z3A.36 36 weeks gestation of pregnancy
CPT/HCPCS: 87653

== ENCOUNTER → 2023-03-16 07:51 | Outpatient (CLI) | payer OTHER, MEDICAID, SELFPAY ==
[2023-03-16 09:38] LABS: Glucose 1 Hour Gest 172 mg/dL (76-180)
[2023-03-16 09:49] LABS: Glucose Fasting Gestational 82 mg/dL (76-95)
[2023-03-16 10:45] LABS: Glucose 2 Hour Gest 139 mg/dL (76-155)
[2023-03-16 11:15] LABS: Glucose Tol Interp,Gestational INTERPRETATION
[2023-03-16 12:10] LABS: Glucose 3 Hour Gest 133 mg/dL (76-140)
== END ==
PROVIDERS: Obstetrics & Gynecology; Referring Provider Obstetrics & Gynecology; Visit Provider Obstetrics & Gynecology
DX: R73.09 Other abnormal glucose (principal)
CPT/HCPCS: 36415; 82951; 82952

== ENCOUNTER 2023-04-05 10:59 | Outpatient (CLI) | payer OTHER, MEDICAID, SELFPAY | END 2023-04-05 11:50 | disposition home or self-care (01) | LOC: LABOR 11:24 → OB 04-11 06:37 | PROVIDERS: Referring Provider Obstetrics & Gynecology; Visit Provider Obstetrics & Gynecology | DX: O36.8130 Decreased fetal movements, third trimester, not applicable or unspecified (principal); O47.1 False labor at or after 37 completed weeks of gestation; Z3A.39 39 weeks gestation of pregnancy | CPT/HCPCS: 59025; G0378; G0379 ==

== ENCOUNTER 2023-04-08 07:09 | Inpatient (IN) | payer OTHER, MEDICAID, SELFPAY ==
[2023-04-08 09:49] LABS: Add Manual Diff / Slide Review NO; Basophils Absolute Auto 100 /uL (0-100); Basophils Percent Auto 0.4 % (0-2); Eosinophils Absolute Auto 0 /uL (0-450); Eosinophils Percent Auto 0.2 % (2-4); Hematocrit 38.1 % (36-46); Hemoglobin 12.8 g/dL (12.0-16.0); Lymphocytes Absolute Auto 2100 /uL (1100-4500); Lymphocytes Percent Auto 13.5 % (25-40); Mean Corpuscular HGB Conc 33.5 % (30-36); Mean Corpuscular Hemoglobin 29.4 PG (26-34); Mean Corpuscular Volume 87.8 fL (80-100); Monocytes Absolute Auto 700 /uL (0-900); Monocytes Percent Auto 4.7 % (3-14); Neutrophils Absolute Auto 12800 /uL (1500-7000); Neutrophils Percent Auto 81.2 % (50-75); Platelet Count 264 X10^3/uL (150-400); Red Blood Cell Count 4.34 X10^6/uL (4.0-5.2); Red Cell Distribution Width 16.8 % (11.6-14.8); White Blood Cell Count 15.8 X10^3/uL (4.5-11.0)
[2023-04-08] MEDS: LACTATED RINGERS 1,000 ML 100 ML IV ×2 (10:35→16:16)
[2023-04-08 10:39] VITALS: BP 109/65
--- NOTE | 2023-04-08 12:31 | P.HPOB_ITS ---
OB HPI Date/Time Date of admission: 04/08/23 Date Patient Seen: 04/08/23 Time Patient Seen: 11:45 History of Present Condition Chief complaint: Pelvis Pressure : 2 Para: 1 Estimated Date of Delivery: 04/08/23 Estimated Gestational Age (weeks): 40+0 Narrative: Judy Ruano is a 22 year old female Comments: admitted in early labor this morning. History of Present care: good care Dating criteria: LMP confirmed by 2nd trimester US Obstetrical complications: none Medical complications: none Narrative: Current pregancy conceived <6 months after last delivery Jorge (lives in [place], unsure whether he will be able to be here for delivery) Right ventricular outflow tract not well seen on 20 week ultrasound. Patient is to schedule follow-up at [facility] Assigned to Dr. King Abnormal 1hr GTT, normal 3hr GTT Preadmission Labs Blood type: O (+) positive -: Antibody screen: negative, Cystic fibrosis screen: unknown, GBS status: negative, HBsAG: negative, HIV: negative, HSV 1: unknown, HSV 2: unknown and RPR/VDLR: negative -: Chlamydia screen: not detected and Gonorrhea screen: not detected -: Rubella: immune and Varicella: immune HCT: 38.1 HCAB: negative PAP: Normal 1 hr GTT: 157 3 hr GTT: 3 hr (0/4 values elevated) Evaluation Evaluation Baseline heart rate: 140 Variability: Moderate (11-25) monitor accelerations: Present Monitor Decelerations: Episodic and Variable Contraction Frequency (minutes): 3 Status: Category ll Dilation: 3-4 cm [facility] Medical History (Updated 03/15/23 @ 10:42 by Andre King MD) Healthy adult Surgical History No pertinent past surgical history Social History marital status: ( lives in [place], pt travels frequently to visit him) number of children: 1 household members: family (parents) and children lives independently: Yes caregiver/support person: Yes housing: house pets and animals: No education level: high school occupational status: unemployed current occupational exposures/hazards: No special guerita needs: No travel history: recent ([place]) seatbelt use: always water heater temp set < 120 deg: Yes working smoke detector in home: Yes fire extinguisher in home: Yes carbon monox detector in home: Yes firearms in home: Yes do you feel safe at home: Yes Smoking Status: Never smoker second hand exposure: No alcohol intake: former (not since before 1st ) substance use type: does not use during the past year weight has: other (daughter is only 9 months old) well-balanced diet: about half the time daily servings fruits/ve-4 (mostly fruit, very little veg) caffeine: No Type(s) of exercise: walking frequency: daily duration: 30-45 minutes/day Meds Home Medications and Allergies Home Medications Medication Instructions Recorded Confirmed Type prenat.vits,lindsay,[id number] 1 tab PO DAILY 12/23/21 04/08/23 History Allergies Allergy/AdvReac Type Severity Reaction Status Date / Time No Known Drug Allergies Allergy Verified 04/05/23 10:20 Review of Systems Review of Systems ROS: Yes All systems reviewed with the patient and are negative except as otherwise documented OB Exam Vital signs Blood Pressure: 109/60 Pulse Rate: 90 Temperature: 36.1 F HENMT Head: normal to inspection Resp Effort & Inspection: normal respiratory effort and able to speak in complete sentences Extremities Lower extremity: Yes normal to inspection GI Other: gravid, nontender, nondistended Objective Labs 04/08/23 09:40 Labs: Laboratory Results - last 24 hr 04/08/23 09:40 WBC 15.8 H RBC 4.34 Hgb 12.8 Hct 38.1 MCV 87.8 MCH 29.4 MCHC 33.5 RDW 16.8 H Plt Count 264 Neut % (Auto) 81.2 H Lymph % (Auto) 13.5 L [place] % (Auto) 4.7 Eos % (Auto) 0.2 L Baso % (Auto) 0.4 Neut # (Auto) 47063 H Lymph # (Auto) 2100 [place] # (Auto) 700 Eos # (Auto) 0 Baso # (Auto) 100 Blood Type O Positive Antibody Screen Negative Assessment and Plan Assessment and Plan Assessment and Plan narrative: 22yo at 40+0wks admitted in early labor. SROM occurred at 9:15am. -CBC, T&S on admission -continuous EFM -epidural PRN -GBS neg, ppx not indicated -PPH risk low -VTE risk low, SCDs with epidural if placed -anticipate L&D Counseling: Common procedures and interventions related to the management of were explained to the patient, including assistance at vaginal delivery with episiotomy, vacuum, or forceps, use of medications to stop premature labor or induce labor, and assessment including auscultation (listening to the heart), use of electronic monitoring (external and / or internal), and use of scalp electrode and/or intrauterine pressure catheter.? It was also explained that approximately 20-30% of mothers have a need for delivery during their labor course. It was explained to the patient that , labor and delivery are ordinarily normal physiological events and can be expected to provide a healthy outcome for mother and baby in the majority of cases. However, there are complications that may arise during , labor, and delivery, such as: hemorrhage requiring administration of blood and/or blood products, surgical intervention, possibly even hysterectomy for life-saving purposes; possibility of infection requiring antibiotics, prolonged hospital stay, and rarely surgical intervention; possibility of blood clots;? possibility of retained products of conception requiring surgical intervention;? possibility of serious tears or injury to the vagina, cervix, perineum, or rectum;? possibility of injury to abdominal structures if delivery is required;? and rarely maternal or may occur. Time Spent with Patient Total time spent with greater than 50% in coordination of care (as documented) at patient's floor/unit and/or counseling patient:: 15-24 minutes
[2023-04-08 12:39] VITALS: BP 109/60; PULSE 90; TEMP 2.3; TEMP 36.1
--- NOTE | 2023-04-08 13:49 | PM.OBPNLAB ---
Date/Time Date Patient Seen: 04/08/23 Time Patient Seen: 13:49 Pain Control Pain control: tolerating well Pelvic Exam Dilation (cm): 8 Effacement (%): 100 station: -1 Amniotic membrane status: Ruptured Comments: IUPC placed for amnioinfusion Contractions Contractions on admission: regular Contraction frequency (min): 3 Status status: Category ll Heart Rate Baseline: 135 Monitor Accelerations: Absent Monitor Decelerations: Recurrent and Variable Monitor Variability: Moderate Assessment and Plan Assessment: active labor Plan: continuous present management Comments: Placed amnioinfusion for recurrent variable decels. Anticipate .
--- NOTE | 2023-04-08 14:56 | PM.OBPNLAB ---
Date/Time Date Patient Seen: 04/08/23 Time Patient Seen: 14:56 Pain Control Pain control: tolerating well Pelvic Exam Dilation (cm): 8 Effacement (%): 100 station: -1 Amniotic membrane status: Ruptured Contractions Contractions on admission: regular Contraction frequency (min): 3 Status status: Category ll Heart Rate Baseline: 140 Monitor Accelerations: Absent Monitor Decelerations: Episodic, Late and Variable Monitor Variability: Moderate Assessment and Plan Assessment: active labor Plan: continuous present management Comments: Pt with adequate MVUs. Bedside sono shows transverse presentation. Enouraged pt to move positions frequently. May consider epidural placement.
[2023-04-08] MEDS: LACTATED RINGERS 500 ML 1000 ML IV (15:43)
[2023-04-08] MEDS: LIDOCAINE 1% 20 ML INJ (16:15)
--- NOTE | 2023-04-08 16:31 | P.PCNOB_ITS ---
Events: Meconium Stained Fluid Labor & Delivery Delivery date: 04/08/23 Cervical ripening method: none Induction method: none Delivery monitor: external FHT and internal uterine Route of delivery: L&D Laceration Description: Perineal - 2nd Degree Delivery repair: vicryl Estimated blood loss (mL): 200 Anesthesia Type: Local Complications: none Narrative: Pt progressed to c/c/+1 without augmentation or anesthesia. After approximately 30min of maternal pushing efforts, she delivered a viable female in OA presentation, with restitution ROT. The anterior shoulder delivered with gentle downward pressure, and the posterior shoulder and the rest of the body delivered with ease. A nuchal cord x2 was noted and reduced at the perineum. The infant was placed on maternal abdomen, was dried and stimulated with spontaneous cry noted. Fundus was noted to be firm with bimanual massage. Inspection of the cervix, vagina, and perineum was notable for a second-degree perineal laceration, which was repaired with 3-0 Vicryl in the usual fashion. She was given 1% lidocaine for local anesthetic. Patient tolerated delivery well, and infant remained at bedside. [place] Baby 1: Infant gender: Female Presentation: vertex Position: Right Occiput Anterior Placenta delivery description: Expressed Cord Vessel Description: 3 Vessels, Nuchal Cord, Loose and Reduced score (1 min): 9 score (5 min): 9 weight: 6 lb 13 oz Plan for aftercare: Routine care
[2023-04-08] MEDS: IBUPROFEN 600 MG TABLET PO ×2 (16:43→23:26)
[2023-04-08] MEDS: DERMOPLAST SPRAY 20% 60 ML 1 SPRAY TOP (16:43)
[2023-04-08] MEDS: ACETAMINOPHEN 325 MG TABLET 650 MG PO ×2 (16:43→23:26)
--- NOTE | 2023-04-09 09:34 | P.DS_ITS ---
Discharge Providers Provider Date of admission: 04/08/23 07:09 Discharge Date: 04/09/23 Primary care physician: Doctor Pauline MD Consults: 04/08/23 08:56 Consult to Anesthesiology Urgent Comment: Consulting Provider: Le Stringer Reason for consultation: Epidural 04/09/23 16:29 Consult to Fruit Raiser Routine Comment: Discharge provider: Isa Feliciano DO Summary Hospital Course Date Patient Seen: 04/09/23 Time Patient Seen: 09:35 Diagnoses: Term gestation at 40+0wks Close interval Hospital Course: 22yo [id number] admitted at 40+0wks in labor. She progressed unmedicated to a spontaneous vaginal delivery. Her delivery was uncomplicated, and productive of a viable female with APGARs 9/9. Her course was unremarkable. On day #1, she was ambulating, tolerating regular diet, voiding spontaneously with minimal lochia. Her pain was well controlled with oral medications, thus she was discharged to home on day #1.. Peripartum Data Infant Delivery Method: Natural Vaginal Laceration Description: Perineal - 2nd Degree Procedures: External monitoring Intrauterine pressure catheter placement Amnioinfusion Spontaneous vaginal delivery Local anesthesia Perineal laceration repair complications: none Discharge Diagnosis (1) Vaginal delivery: Status: Acute Status at Discharge Cognitive/behavioral status at discharge: oriented Functional status at discharge: independent ambulation Overall status at discharge: patient is back to baseline Time Spent with Patient Time attestation: Total time spent providing and/or coordinating discharge services: Time spent: Greater than 30 minutes Objective Labs 04/08/23 09:40 Labs: Laboratory Results - last 24 hr 04/08/23 09:40 WBC 15.8 H RBC 4.34 Hgb 12.8 Hct 38.1 MCV 87.8 MCH 29.4 MCHC 33.5 RDW 16.8 H Plt Count 264 Neut % (Auto) 81.2 H Lymph % (Auto) 13.5 L [place] % (Auto) 4.7 Eos % (Auto) 0.2 L Baso % (Auto) 0.4 Neut # (Auto) 20477 H Lymph # (Auto) 2100 [place] # (Auto) 700 Eos # (Auto) 0 Baso # (Auto) 100 Blood Type O Positive Antibody Screen Negative Exam Vital Signs (past 8 hours): vitals reviewed in OBIX, within normal parameters Const General: cooperative, healthy appearing, comfortable and No acute distress Resp Effort & Inspection: normal respiratory effort GI Inspection: normal to inspection Other: fundus firm and nontender at U-2 Skin General: no rashes or lesions noted Neuro General: patient alert and patient awake Extrem General: normal to inspection, no pedal edema and no calf tenderness Psych Mood: congruent mood Affect: normal affect Discharge Plan Discharge Plan Patient Disposition: Home Provider Discharge Comment: Take ibuprofen 600mg every 6hrs as needed and tylenol 650mg every 6hrs as needed for pain. Nothing in the vagina for 6wks. Discharge orders & Medications Prescriptions: Continued prenat.vits,lindsay,[id number] Tablet 1 tab PO DAILY Follow up/Referrals: Isa Feliciano DO [Physician] - (Please follow up with Dr. Feliciano in six weeks!) Diet/Activity/Treatments Diet: Diet as Tolerated Activity: As tolerated. Skin/Wound/Dressing Care Report to your healthcare provider any signs of infection, such as:: chills, fever, increased pain, unusual drainage and unusual redness Visit Report/Discharge Packet Instructions: DI for Labor and Delivery, Vaginal Stand Alone Forms: Discharge: Care, Patient Portal/API, Stroke Signs & Symptoms Discharge Data Primary Care Provider: Miscellaneous,Doctor
[2023-04-09] MEDS: IBUPROFEN 600 MG TABLET PO (15:07)
[2023-04-09] MEDS: ACETAMINOPHEN 325 MG TABLET 650 MG PO (15:08)
[2023-04-09] MEDS: DOCUSATE 100 MG CAPSULE PO (15:08)
[2023-04-09 18:31] VITALS: BP 122/76; PULSE 72; RESP 14; TEMP 36.7
== END 2023-04-09 18:28 | disposition home or self-care (01) | DRG 560 ==
PROVIDERS: Admitting Provider Obstetrics & Gynecology; Referring Provider Obstetrics & Gynecology; Visit Provider Obstetrics & Gynecology
DX: O70.1 Second degree perineal laceration during delivery (principal); Z3A.40 40 weeks gestation of pregnancy; Z37.0 Single live birth
CPT/HCPCS: 36415; 59025; 59050; 59409; 76815; 85025; 86850; 86900; 86901; G0379